=== PATIENT | male | born 1980 | race Caucasian/White ===

== ENCOUNTER 2017-09-15 12:41 | Emergency (ER) | END 2017-09-15 13:18 | disposition home or self-care (01) ==

== ENCOUNTER 2017-10-08 12:43 | Emergency (ER) | END 2017-10-08 17:11 | disposition home or self-care (01) ==

== ENCOUNTER 2018-03-04 18:38 | Emergency (ER) | END 2018-03-04 19:48 | disposition home or self-care (01) ==